=== PATIENT | female | born 1985 | race Caucasian/White ===

== ENCOUNTER 2016-06-05 07:06 | Emergency (ER) | payer BC ==
--- NOTE | 2016-06-06 00:50 | ED ORDER SUMMARY ---
..... Patient: WANDA BROWN OrderSheet [facility] VisitID: [id number] [place] [address] 30y, F Registration Date/Time: 06/05/2016 ORDER SHEET Weight: 59.8 kg (stated) Allergies: No Known Drug Allergy GENERAL ORDERS: CBC w Diff Urgent (08:20 06/05/2016 Justin GAUTAM) (Ack 8:21 TBergley) (9:00 TBergley) CMP Urgent (08:06/05/2016 Justin GAUTAM) (Ack 8:21 TBergley) (9:00 TBergley) UA-Culture if indicated Urgent (08:06/05/2016 Justin GAUTAM) (Ack 8:21 TBergley) (9:00 TBergley) Urine Urgent (08:20 06/05/2016 Justin GAUTAM) (Ack 8:21 TBergley) (9:00 TBergley) Urine Drug Screen Urgent (08:06/05/2016 Justin GAUTAM) (Ack 8:21 TBergley) (9:00 TBergley) POC Breathalyzer (08:20 06/05/2016 Justin GAUTAM) (Ack 8:21 TBergley) (8:34 TBergley) Call (Place call to): (PAT team) (09:03 06/05/2016 Savannah PEARL) (9:05 TBergley) MEDICATION ORDERS: Ativan PO 1 mg (once now for sleep) (04:43 06/06/2016 Parish Paul) (4:46 Yesika R.NDl) IV FLUIDS: ORDER SHEET NOTES: [Electronically signed by Desean Lowery R.N. (10:09 06/07/2016)] [Electronically signed by Jose Starr DO (07:38 06/08/2016)] [Electronically locked/signed by Desean Lowery R.N. (10:06/07/2016)]
--- NOTE | 2016-06-06 00:50 | ED ORDER SUMMARY ---
..... Patient: WANDA BROWN OrderSheet [facility] VisitID: [id number] [place] [address] 30y, F Registration Date/Time: 06/05/2016 ORDER SHEET Weight: 59.8 kg (stated) Allergies: No Known Drug Allergy GENERAL ORDERS: CBC w Diff Urgent (08:20 06/05/2016 Justin GAUTAM) (Ack 8:21 TBergley) (9:00 TBergley) CMP Urgent (08:06/05/2016 Justin GAUTAM) (Ack 8:21 TBergley) (9:00 TBergley) UA-Culture if indicated Urgent (08:06/05/2016 Justin GAUTAM) (Ack 8:21 TBergley) (9:00 TBergley) Urine Urgent (08:20 06/05/2016 Justin GAUTAM) (Ack 8:21 TBergley) (9:00 TBergley) Urine Drug Screen Urgent (08:06/05/2016 Justin GAUTAM) (Ack 8:21 TBergley) (9:00 TBergley) POC Breathalyzer (08:20 06/05/2016 Justin GAUTAM) (Ack 8:21 TBergley) (8:34 TBergley) Call (Place call to): (PAT team) (09:03 06/05/2016 Savannah PEARL) (9:05 TBergley) MEDICATION ORDERS: Ativan PO 1 mg (once now for sleep) (04:43 06/06/2016 Parish Paul) (4:46 Yesika R.NDl) IV FLUIDS: ORDER SHEET NOTES: [Electronically signed by Desean Lowery R.N. (10:09 06/07/2016)] [Electronically signed by Jose Starr DO (07:38 06/08/2016)] [Electronically locked/signed by Desean Lowery R.N. (10:06/07/2016)]
--- NOTE | 2016-06-06 00:50 | ED NURSING NOTES ---
Clinical Report - Nurses [facility] [address] [place] [address] 06/05/2016 7:11 [id number] Triage time 07:Jun 05 2016. Acuity: LEVEL 3. Chief Complaint: DEPRESSION, SUICIDAL THOUGHTS, ANXIETY, DELUSIONS and BIZARRE BEHAVIOR. LUNA COMA SCORE: [place] Coma Scale: 15- eyes open spontaneously (4); best verbal response- oriented x 4 (5); best motor response- obeys commands (6). --07:40 Desean Lowery R.N. 07:23 06/05/16. BP: 124/88. HR: 81. RR: 18. O2 saturation: 98%. Temp: 98.4 F. Pain level now 0/10. --07:40 Desean Lowery R.N. Weight: 59.8 kg stated. Height/Length: 66 inches Per Patient. BMI: 21.3. --07:36 Desean Lowery R.N. Medications PROzac Oral. --07:33 Desean Lowery R.N. Ambien Oral. --07:33 Desean Lowery R.N. Allergies No Known Drug Allergy. --01:02 Leoncio Beaver R.N. History Arrived by private vehicle. Historian: patient. Accompanied by family. ( Two weeks ago patient started getting worse with delusions and and having anxiety and thoughts of her having brain damage. Patient was taken off prozac that she was on for 11 years and was weaned to CBD cannabis oil. Patient felt like she started to get shooting pains down her spine and through her body and was unable to sleep. Patient was worried that her brain is damaged from the cannabis. Patient was started on Prozac Tuesday 20 mg and ambien 5 mg on . Patient states she wants to kill herself by electrocution or jumping off her parents balcony. Patient states she wants to because she will never get REM sleep again. Patient agrees to contact RN if feeling unsafe or like hurting herself during her stay.). She has had anxiety and sleeping difficulties, describes feelings of depression and has been confused. PAST MEDICAL HX: Anxiety. Psychiatric illness. No history of diabetes mellitus or hypertension. Immunizations: up-to-date. Last normal menstrual period- May 25. SOCIAL HX: Never smoker. History of drug use: marijuana. No alcohol use. SELF HARM ASSESSMENT: A self harm assessment was performed. The patient answered "yes" to the question "Have you recently felt down, depressed, or hopeless?", "Have you noticed less interest or pleasure in doing things?" and "Do you have thoughts of harming or killing yourself?" and "no" to the question "Are you here because you tried to hurt yourself?", "Have you ever tried to hurt yourself before today?", "Have you recently had thoughts about harming or killing others?" and "Do you have any dangerous items in your possession?". The patient reports their behavior included delusions and as confused and family reported the patient's behavior included delusions and as confused. In the ED the patient has been restless, having delusions and anxious and made suicidal comments. She has been placed under 1-on-1 and continuous supervision with family at bedside. She was placed in direct sight of the nurses station. Clothes and valuables were removed and placed at the nurses station. The ED physician has been notified. FALL RISK ASSESSMENT: Fall risk assessment completed. No fall risk identified. NUTRITIONAL RISK ASSESSMENT: The nutritional risk assessment revealed no deficiencies. FUNCTIONAL ASSESSMENT: Functional assessment: no impairments noted. LEARNING NEEDS ASSESSMENT: The learning needs assessment revealed no barriers. SKIN INTEGRITY ASSESSMENT: Skin integrity risk assessment completed. No skin integrity risk identified. --07:40 Desean Lowery R.N. PROBLEMS: Anxiety disorder. Autism. Asperger's disorder. --07:34 Desean Lowery R.N. ADDITIONAL SURGERIES: no known surgeries. Interventions ID band on patient. --07:40 Desean Lowery R.N. PHYSICAL ASSESSMENT Ambulatory to room. GENERAL / NEURO / PSYCH: Alert. Oriented X 4. Appears anxious and in distress. Speech within normal limits. Patient's mood/affect appears flat. Patient appears calm and cooperative. Behavior appears abnormal, including paranoid behaviors. The patient appears to have altered thought processes, verbalized as delusions of grandeur and obsessive-compulsive ideation. She describes constant suicidal thoughts and has a specific plan (with access to the planned method). Patient appears well-nourished and neat and clean. RESPIRATORY: Respirations not labored. Breath sounds within normal limits. CVS: Normal heart rate and rhythm. Capillary refill less than 2 seconds. GI / : Abdomen soft and nontender. Bowel sounds within normal limits. ( Last BM yesterday normal slightly constipated). SKIN: Skin intact. Skin is warm and dry. Skin color is within normal limits. --07:41 Desean Lowery R.N. ( PAT psych vibration analyst is currently with the patient. Patient appears calm, sitting in bed talking with the vibration analyst. Parents of the patient are at the bedside.). --00:09 Leoncio Beaver R.N. ( Parents of the patient at bedside. PAtient resting in bed, appears calm.). --00:56 Leoncio Beaver R.N. ( Patient appears to be sleeping in bed. The patient's parents have now left the ER, and the patient is alone in the room, in view of the nurse's station.). --01:35 Leoncio Beaver R.N. GENERAL / NEURO / PSYCH: Alert. Oriented X 4. Appears in no acute distress. Speech within normal limits. Good eye contact. Patient appears well-nourished and neat and clean. RESPIRATORY: Respirations not labored. CVS: Capillary refill less than 2 seconds. SKIN: Skin is warm and dry. Skin color is within normal limits. --01:58 Leoncio Beaver R.N. 01:57 06/06/16. BP: 138/88 taken while lying. HR: 92. RR: 18 (regular and unlabored). O2 saturation: 100% on room air. --01:58 Leoncio Beaver R.N. ( Patient appears calm and appears to be sleeping, in ER bed.). --05:37 Leoncio Beaver R.N. ( Patient remains in view of nursing station, under observation. Patient currently appears to be sleeping.). --06:01 Leoncio Beaver R.N. ( Patient appears to be sleeping. in bed.). --06:15 Leoncio Beaver R.N. NURSING PROGRESS NOTES The initial plan of care for this patient includes an assessment with efforts to address patient positioning, appropriate ambient lighting and comfortable environmental temperature. Pulse oximeter and NIBP monitor placed on patient. Patient gowned. Reassurance given. Suicide precautions initiated. Call light placed in reach. Side rails up x 2. Bed placed in lowest position. Brakes of bed on. --07:41 Desean Lowery R.N. ( Q 15 min checks completed. Patient stable. Parents at bedside offered fluids and food. Patient accepted tea. Patient not left alone.). --10:11 Desean Lowery R.N. ( Continued with Q 15 min checks. Patient ate lunch. Mom at bedside to supervise patient. Keeps asking for MRI states doesn't want to be awake forever and of exhaustion. Gave patient puzzle and coloring materials to keep in supervision of parent to distract patient and ease anxiety.). --12:12 Desean Lowery R.N. ( Continued with Q 15 min checks and father joined bedside. Patient attempting to rest.). --14:06 Desean Lowery R.N. ( Contiuned with Q15 min checks. Mother at bedside. Patient taking a nap currently since 1530.). --16:27 Desean Lowery R.N. 17:42 06/05/16. BP: 126/85. HR: 84. RR: 16. O2 saturation: 97%. Temp: 98.0 F. --17:43 Jacqueline Teresa ( Report received from SARA Anton. Patient states that she will notify staff "if I feel unsafe". Parents of patient at bedside. Patient in view of nurses station, she is sitting in bed calmly coloring pictures.). --19:21 Leoncio Beaver R.N. 19:32 06/05/16. BP: 123/89. HR: 73. RR: 16 (regular and unlabored). O2 saturation: 98% on room air. Pain level now: 0/10. --19:32 Leoncio Beaver R.N. ( I've been rounding on patient every 15 minutes. Patient currently sitting in bed, conversing with her parents, who are both at the bedside, and watching television.). --19:43 Leoncio Beaver R.N. 20:14 Breathalyzer 0.00. --20:14 Melanie Troy ER Tech1 ( Patient ambulates to restroom with her mother, mother enters restroom with patient). --20:25 Leoncio Beaver R.N. ( Patient returns to room (ER #3) with her mother.). --20:26 Leoncio Beaver R.N. ( Patient in view of nursing station. Performing 15 minute checks on patient, patient with parents, reclining in bed watching television, appears calm and awake.). --20:34 Leoncio Beaver R.N. Patient gowned. Head of bed elevated. Suicide precautions initiated: a safety sweep of the room is ongoing. Frequent one on one supervision, family at bedside, checks performed every 15 minutes. Patient placed in direct sight of the nurse's station. Call light placed in reach. ( I've been performing 15 minute checks on patient. patient has been resting in bed, parents of patient at bedside, drinks offered and provided to patient and family.). --21:50 Leoncio Beaver R.N. 21:50 06/05/16. BP: 127/88. HR: 69. RR: 16 (regular and unlabored). O2 saturation: 98% on room air. Pain level now: 0/10. --21:51 Leoncio Beaver R.N. 23:34 06/05/16. BP: 128/81. HR: 76. RR: 16. O2 saturation: 100% on room air. Additional comments: Parents at bedside, no voiced questions or concerns at this time. Patient and family given ETA of PAT sales performance manager . --23:34 Melanie Troy ER Tech1 ( I asked Dr. Christiano Young, at the patient's mother's request, if the patient could be given a dose of ambien (5 mg)--from her home medication supply (which is in the possession of the patient's mother). The doctor said that the patient may take her regular dose of ambien, from the medication supply that her mother has brought with her. I witnessed the mother give the patient one tablet--5 mg--of ambien from her home medication supply.). --00:17 Leoncio Beaver R.N. ( patient moved to the room with the highest available visibility from the nurses' station--ER room 13. (Psych room 16 is already occupied).). --01:57 Leoncio Beaver R.N. Patient gowned. Head of bed elevated 15 degrees. Suicide precautions initiated: a safety sweep of the room is ongoing. Frequent one on one supervision, checks performed every 15 minutes. Patient placed in direct sight of the nurse's station. Call light placed in reach. Side rails up x 1. Bed placed in lowest position. Brakes of bed on. --01:59 Leoncio Beaver R.N. ( Continued q15 checks. Patient on constant observation since moving to room ER-13. Patient currently appears to be sleeping, in bed. appears calm.). --04:09 Leoncio Beaver R.N. 04:35 06/06/16. BP: 125/90 taken on the left arm, while sitting. HR: 84. RR: 18 (regular and unlabored). O2 saturation: 100% on room air. Mejias-Adames pain scale: 0/10. --04:38 Leoncio Beaver R.N. Two patient identifiers checked. Call light placed in reach. Side rails up x 1. Bed placed in lowest position. Brakes of bed on. ( Patient calm and resting in bed. I awoke her to recheck vital signs and see if she had any needs. Water offered and provided to patient.). --04:38 Leoncio Beaver R.N. 04:46 06/06/2016 Ativan (LORazepam) PO Tablets 1 mg given. Allergies verified, confirmed 5 rights and sedative warning given to the patient. --04:46 Leoncio Beaver R.N. 04:44. ( Patient states "I'm pretty sure I had a stroke back there. on my back. and I am pretty sure I need an x-ray." I notified the doctor of the patient's concerns.). --04:50 Leoncio Beaver R.N. ( Patient is restless, Has gotten out of bed, and is pacing her room.). --04:52 Leoncio Beaver R.N. ( Patient states that "I had a stroke in my back, and now I can't dream". I escorted the patient to the restroom, and then back to her room. I offered the patient television and she declined. Patient is currently pacing in her room.). --05:00 Leoncio Beaver R.N. ( Wanda is awake, pacing room. Seems anxious. States "I can't go in to REM sleep because I have had a stroke in my back." Provided Wanda with new warm blankets and asked if she would like to engage in a mindfulness activity. Wanda is currently lying down comfortably; she verbalizes she likes Frozen and the character Darren. At this time, she is focusing her thoughts on the movie Frozen and Darren paying attention to when her mind wanders to negative thoughts about sleep and the stroke in her back. She is able to actively engage in activity.). --05:12 Tor Garcia R.N. ( Report given to Desean Cordova RN. Patient resting in bed, appears calm.). --06:57 Leoncio Beaver R.N. ( Patient resting soundly will vital patient with arrival of breakfast.). --07:30 Desean Lowery R.N. ( Patient states feels like she has slept well. Still feels a little sleepy. Vitals completed and breakfast given. Q 15 min checks completed.). --08:32 Desean Lowery R.N. 08:31 06/06/16. BP: 138/93. HR: 117. RR: 18. O2 saturation: 96%. Temp: 98.4 F. Pain level now 0/10. --08:32 Desean Lowery R.N. ( Patient resting soundly after am hygiene care. Parents at bedside. Q 15 min checks continued.). --09:50 Desean Lowery R.N. DISPOSITION / DISCHARGE Departure time: 10:59 Jun 06 2016. Transferred to [facility]. ( Report given to Ambulance and call made to [place] for report.). --10:59 Desean Lowery R.N. 10:58 06/06/16. BP: 132/88. HR: 110. RR: 18. O2 saturation: 98%. Temp: 98.2 F. Pain level now 0/10. --10:59 Desean Lowery R.N. 08:31 06/06/16. BP: 138/93. HR: 117. RR: 18. O2 saturation: 96%. Temp: 98.4 F. Pain level now 0/10. --10:59 Desean Lowery R.N. Locked/Released at 06/07/2016 10:09 by Desean Lowery R.N.
--- NOTE | 2016-06-06 00:50 | ED CLINICAL REPORT ---
Clinical Report - Physicians/Mid Levels [facility] [address] [place] [address] 06/05/2016 7:11 [id number] Time Seen: 07:30. Arrived- By private vehicle. Historian- patient and family. HISTORY OF PRESENT ILLNESS Chief Complaint: SUICIDAL THOUGHTS and ATTEMPT. This started several weeks ago. (Most recently the patient believes that, "the spine has stopped sending signals to my brain so I cannot get REM sleep. She would like a "total body scan. She describes herself as axious. She has significant suicidal thoughts. She has thought about jumping off the balcony and landing on her head. She has thought about putting a spoon in electrical socket. In fact she did that but the spoon had a wooden handle so there was no ill effect. she was treated with Prozac for 11 years by a practitioner in [place]. She her family and the practitioner wanted to wean her off Prozac because she was having suicidal ideation and being aggressive which they blamed on the Prozac. Over a period of 18 months she weaned off the Prozac and stopped altogether on March 08. She felt well at that time. At the end of March she decided to try cannabis oil to treat symptoms of anxiety.This seemed to make her worse. She has not taken any cannabis in the last month.). (Ambien - 5 mg 4-5 hours of sleep). Has not been eating or sleeping. She has had anxiety and delusions. Has been depressed and had suicidal thoughts. She inflicted self-injury. The symptoms are described as severe. No injury is present. Similar symptoms previously: Recent medical care: The patient was seen recently by a health care provider. REVIEW OF SYSTEMS Last normal menstrual period- May 23. No headache, dizziness, weakness, chest pain or abdominal pain. No vomiting, diarrhea, black stools, fever or sore throat. No cough, difficulty breathing, urinary frequency, skin rash or enlarged lymph nodes. No joint pain. The patient has had depression and a sleep disorder. All systems otherwise negative, except as recorded above. PAST HISTORY ( PCP: [facility] - no local Ops: None Hosp: Eating disorder - anorexia and bulimia, Anxiety, Illness: Autism spectrum, OCD,). SOCIAL HISTORY Never smoker. History of drug use: marijuana. No alcohol use. Has good social support. Lives with family. ADDITIONAL NOTES The nursing notes have been reviewed. PHYSICAL EXAM Vital Signs: 06/05/2016 07:23 BP: 124/88. HR: 81. RR: 18. O2 saturation: 98%. Temp: 98.4 F. Appearance: Alert. No acute distress. Appearance is normal. Eyes: Pupils equal, round and reactive to light. Neck: Normal inspection. Neck supple. CVS: Normal heart rate and rhythm. Heart sounds normal. Respiratory: Breath sounds normal. Chest nontender. Abdomen: Soft and nontender. Back: No tenderness. Skin: Skin warm. Normal skin color. Extremities: Extremities exhibit normal ROM. No lower extremity edema. Psych / Neuro: Oriented X 3. Speech normal and is abnormal. Cognition normal. She is not disoriented. She expresses suicidal thoughts. Insight and judgement normal. Cranial nerves normal (as tested). No motor deficit. LABS, X-RAYS, AND EKG Laboratory Tests: UA-Culture if indicated: (SANDRA: 06/05/2016 08:40) ( MsgRcvd 06/05/2016 08:58) Final results Test Result Flag Units (Reference) URINE COLOR YELLOW URINE APPEARANCE SL CLOUDY URINE GLUCOSE NEGATIVE (NEGATIVE) URINE BILIRUBIN NEGATIVE (NEGATIVE) URINE KETONE NEGATIVE (NEGATIVE) URINE SPECIFIC GRAVITY 1.015 (1.010-1.030) URINE PH 8.5 H (5.0-8.0) URINE PROTEIN NEGATIVE (NEGATIVE) URINE UROBILINOGEN 0.2 EU/dL (0.2-1.0) URINE NITRITE NEGATIVE (NEGATIVE) URINE BLOOD NEGATIVE (NEGATIVE) URINE LEUK ESTERASE NEGATIVE (NEGATIVE) URINE RBC NONE SEEN rbc/hpf (0-1) URINE WBC NONE SEEN wbc/hpf (0-1) URINE EPITHELIAL CELLS 0-1 EPI/hpf (0-5) URINE BACTERIA TRACE (<1+) (NONE SEEN) URINE COMMENT CULT NOT INDICATED 3+ AMORPHOUSURINE CULTURES ARE SET-UP BASED ON THE FOLLOWING CRITERIA:POSITIVE NITRITEPOSITIVE LEUKOCYTE ESTERASEGREATER THAN 10 WHITE BLOOD CELLSMODERATE (2+) OR GREATER BACTERIA Urine: (SANDRA: 06/05/2016 08:40) ( [facility] 06/05/2016 08:52) Final results Test Result Flag Units (Reference) URINE NEGATIVE CBC w Diff: (SANDRA: 06/05/2016 08:40) ( [facility] 06/05/2016 08:54) Final results Test Result Flag Units (Reference) WHITE BLOOD COUNT 9.2 K/uL (4.5-11.5) RED BLOOD COUNT 4.33 M/uL (4.00-5.20) HEMOGLOBIN 13.4 gm/dL (12.0-16.0) HEMATOCRIT 40.4 % (36.0-46.0) MEAN CELL VOLUME 93 fL (80-100) MEAN CORPUSCULAR HGB 31 pg (26-34) MEAN CORPUSCULAR HGB CONC 33 g/dL (31-37) RED CELL DISTRIBUTION WIDTH 12.9 % (11.6-14.8) PLATELET COUNT 253 K/uL (150-400) NEUTROPHIL % 78.1 H % (50-75) LYMPH % 13.0 L % (25-40) MONO % 8.0 % (3-14) EOSINOPHIL % 0.9 % (0-4) BASOPHIL % 0 % (0-2) Urine Drug Screen: (SANDRA: 06/05/2016 08:40) ( [facility] 06/05/2016 09:00) Final results Test Result Flag Units (Reference) AMPHETAMINE/METHAMPHETAMINE NEGATIVE (NEGATIVE) BARBITURATE NEGATIVE (NEGATIVE) BENZODIAZEPINE NEGATIVE (NEGATIVE) CANNABINOID NEGATIVE (NEGATIVE) COCAINE NEGATIVE (NEGATIVE) ECSTASY NEGATIVE (NEGATIVE) METHADONE NEGATIVE (NEGATIVE) OPIATE NEGATIVE (NEGATIVE) The urine drug screen is a qualitative screening test fordrug overdose and abuse. All screen results should beconsidered as presumptive.Drugs screened for are as follows:BenzodiazepinesCocaineAmphetamines/MetamphetaminesTHC (Tetrahydrocannabinol)OpiatesBarbituratesEcstasyMethadonePositive results are unconfirmed. For confirmation, notifythe lab for the specimen to be sent to the reference lab.All confirmations must be performed by a differentmethodology.The ingestion of natural herbal and plant productscontaining Ephedra/Ephedra metabolites can produce in urineone or more substances capable of cross reacting withamphetamine/methamphetamine immunoassays. These testsprovide a preliminary result only. A more specificalternative chemical method must be used to obtain aconfirmed analytical result. CMP: (SANDRA: 06/05/2016 08:40) ( MsgRcvd 06/05/2016 09:02) Final results Test Result Flag Units (Reference) GLUCOSE 100 mg/dL (70-110) BUN 12 mg/dL (7-18) CREATININE 0.7 mg/dL (0.6-1.3) Estimated GFR >60 mL/min Estimated GFR- >60 mL/min Note: Persistent reduction over 3 months in eGFR<60 mL/min/1.73 m2 defines CKD. Patients with eGFR values>=60 mL/min/1.73 m2 may also have CKD if evidence ofpersistent proteinuria. Additional information may be foundat www.kidney.org. SODIUM 143 mmol/L (136-145) POTASSIUM 4.1 mmol/L (3.5-5.1) CHLORIDE 105 mmol/L (98-107) CARBON DIOXIDE 29 mmol/L (21-32) CALCIUM 9.1 mg/dL (8.5-10.1) TOTAL PROTEIN 7.5 g/dL (6.4-8.2) ALBUMIN 4.1 g/dL (3.3-5.0) BILIRUBIN, TOTAL 0.3 mg/dL (0.0-1.0) ALKALINE PHOSPHATASE 45 L U/L (46-116) AST (SGOT) 26 U/L (15-37) ALT (SGPT) 43 U/L (12-78) . (Breathalyzer 0). Pulse Oximetry: 06/05/2016 07:23 O2 saturation: 98%. (FIO2 - room air). Interpretation: normal. PROGRESS AND PROCEDURES Course of Care: 08:53 06/05/16. Will need [place] residential support worker. 08:56 06/05/16. Care transferred to Dr Starr due to change of shift. /Emily Pardo MD 09:47 06/05/16. [facility] called and cannot send out worker for about 13 hours. [facility] called and no beds now. Calling [place] intake to see if we can directly transfer 10:36 06/05/16. No psychiatric beds at [facility] or . I have informed patient and family of the long wait - until at least 23:00 tonight. Wanda is still "voluntary" but still expressing suicidal ideation. Pt evaluated by mental health and has bed at [facility]. She remains hemodynamically stable in the ED. Patient/family counseled. Disposition: Transferred to [facility]. Condition: stable. CLINICAL IMPRESSION Suicidal ideation (Electronically signed by Jose Starr DO 06/08/2016 7:38)
--- NOTE | 2016-06-06 00:50 | ED CLINICAL REPORT ---
Clinical Report - Physicians/Mid Levels [facility] [address] [place] [address] 06/05/2016 7:11 [id number] Time Seen: 07:30. Arrived- By private vehicle. Historian- patient and family. HISTORY OF PRESENT ILLNESS Chief Complaint: SUICIDAL THOUGHTS and ATTEMPT. This started several weeks ago. (Most recently the patient believes that, "the spine has stopped sending signals to my brain so I cannot get REM sleep. She would like a "total body scan. She describes herself as axious. She has significant suicidal thoughts. She has thought about jumping off the balcony and landing on her head. She has thought about putting a spoon in electrical socket. In fact she did that but the spoon had a wooden handle so there was no ill effect. she was treated with Prozac for 11 years by a practitioner in [place]. She her family and the practitioner wanted to wean her off Prozac because she was having suicidal ideation and being aggressive which they blamed on the Prozac. Over a period of 18 months she weaned off the Prozac and stopped altogether on March 08. She felt well at that time. At the end of March she decided to try cannabis oil to treat symptoms of anxiety.This seemed to make her worse. She has not taken any cannabis in the last month.). (Ambien - 5 mg 4-5 hours of sleep). Has not been eating or sleeping. She has had anxiety and delusions. Has been depressed and had suicidal thoughts. She inflicted self-injury. The symptoms are described as severe. No injury is present. Similar symptoms previously: Recent medical care: The patient was seen recently by a health care provider. REVIEW OF SYSTEMS Last normal menstrual period- May 23. No headache, dizziness, weakness, chest pain or abdominal pain. No vomiting, diarrhea, black stools, fever or sore throat. No cough, difficulty breathing, urinary frequency, skin rash or enlarged lymph nodes. No joint pain. The patient has had depression and a sleep disorder. All systems otherwise negative, except as recorded above. PAST HISTORY ( PCP: [facility] - no local Ops: None Hosp: Eating disorder - anorexia and bulimia, Anxiety, Illness: Autism spectrum, OCD,). SOCIAL HISTORY Never smoker. History of drug use: marijuana. No alcohol use. Has good social support. Lives with family. ADDITIONAL NOTES The nursing notes have been reviewed. PHYSICAL EXAM Vital Signs: 06/05/2016 07:23 BP: 124/88. HR: 81. RR: 18. O2 saturation: 98%. Temp: 98.4 F. Appearance: Alert. No acute distress. Appearance is normal. Eyes: Pupils equal, round and reactive to light. Neck: Normal inspection. Neck supple. CVS: Normal heart rate and rhythm. Heart sounds normal. Respiratory: Breath sounds normal. Chest nontender. Abdomen: Soft and nontender. Back: No tenderness. Skin: Skin warm. Normal skin color. Extremities: Extremities exhibit normal ROM. No lower extremity edema. Psych / Neuro: Oriented X 3. Speech normal and is abnormal. Cognition normal. She is not disoriented. She expresses suicidal thoughts. Insight and judgement normal. Cranial nerves normal (as tested). No motor deficit. LABS, X-RAYS, AND EKG Laboratory Tests: UA-Culture if indicated: (SANDRA: 06/05/2016 08:40) ( MsgRcvd 06/05/2016 08:58) Final results Test Result Flag Units (Reference) URINE COLOR YELLOW URINE APPEARANCE SL CLOUDY URINE GLUCOSE NEGATIVE (NEGATIVE) URINE BILIRUBIN NEGATIVE (NEGATIVE) URINE KETONE NEGATIVE (NEGATIVE) URINE SPECIFIC GRAVITY 1.015 (1.010-1.030) URINE PH 8.5 H (5.0-8.0) URINE PROTEIN NEGATIVE (NEGATIVE) URINE UROBILINOGEN 0.2 EU/dL (0.2-1.0) URINE NITRITE NEGATIVE (NEGATIVE) URINE BLOOD NEGATIVE (NEGATIVE) URINE LEUK ESTERASE NEGATIVE (NEGATIVE) URINE RBC NONE SEEN rbc/hpf (0-1) URINE WBC NONE SEEN wbc/hpf (0-1) URINE EPITHELIAL CELLS 0-1 EPI/hpf (0-5) URINE BACTERIA TRACE (<1+) (NONE SEEN) URINE COMMENT CULT NOT INDICATED 3+ AMORPHOUSURINE CULTURES ARE SET-UP BASED ON THE FOLLOWING CRITERIA:POSITIVE NITRITEPOSITIVE LEUKOCYTE ESTERASEGREATER THAN 10 WHITE BLOOD CELLSMODERATE (2+) OR GREATER BACTERIA Urine: (SANDRA: 06/05/2016 08:40) ( [facility] 06/05/2016 08:52) Final results Test Result Flag Units (Reference) URINE NEGATIVE CBC w Diff: (SANDRA: 06/05/2016 08:40) ( [facility] 06/05/2016 08:54) Final results Test Result Flag Units (Reference) WHITE BLOOD COUNT 9.2 K/uL (4.5-11.5) RED BLOOD COUNT 4.33 M/uL (4.00-5.20) HEMOGLOBIN 13.4 gm/dL (12.0-16.0) HEMATOCRIT 40.4 % (36.0-46.0) MEAN CELL VOLUME 93 fL (80-100) MEAN CORPUSCULAR HGB 31 pg (26-34) MEAN CORPUSCULAR HGB CONC 33 g/dL (31-37) RED CELL DISTRIBUTION WIDTH 12.9 % (11.6-14.8) PLATELET COUNT 253 K/uL (150-400) NEUTROPHIL % 78.1 H % (50-75) LYMPH % 13.0 L % (25-40) MONO % 8.0 % (3-14) EOSINOPHIL % 0.9 % (0-4) BASOPHIL % 0 % (0-2) Urine Drug Screen: (SANDRA: 06/05/2016 08:40) ( [facility] 06/05/2016 09:00) Final results Test Result Flag Units (Reference) AMPHETAMINE/METHAMPHETAMINE NEGATIVE (NEGATIVE) BARBITURATE NEGATIVE (NEGATIVE) BENZODIAZEPINE NEGATIVE (NEGATIVE) CANNABINOID NEGATIVE (NEGATIVE) COCAINE NEGATIVE (NEGATIVE) ECSTASY NEGATIVE (NEGATIVE) METHADONE NEGATIVE (NEGATIVE) OPIATE NEGATIVE (NEGATIVE) The urine drug screen is a qualitative screening test fordrug overdose and abuse. All screen results should beconsidered as presumptive.Drugs screened for are as follows:BenzodiazepinesCocaineAmphetamines/MetamphetaminesTHC (Tetrahydrocannabinol)OpiatesBarbituratesEcstasyMethadonePositive results are unconfirmed. For confirmation, notifythe lab for the specimen to be sent to the reference lab.All confirmations must be performed by a differentmethodology.The ingestion of natural herbal and plant productscontaining Ephedra/Ephedra metabolites can produce in urineone or more substances capable of cross reacting withamphetamine/methamphetamine immunoassays. These testsprovide a preliminary result only. A more specificalternative chemical method must be used to obtain aconfirmed analytical result. CMP: (SANDRA: 06/05/2016 08:40) ( MsgRcvd 06/05/2016 09:02) Final results Test Result Flag Units (Reference) GLUCOSE 100 mg/dL (70-110) BUN 12 mg/dL (7-18) CREATININE 0.7 mg/dL (0.6-1.3) Estimated GFR >60 mL/min Estimated GFR- >60 mL/min Note: Persistent reduction over 3 months in eGFR<60 mL/min/1.73 m2 defines CKD. Patients with eGFR values>=60 mL/min/1.73 m2 may also have CKD if evidence ofpersistent proteinuria. Additional information may be foundat www.kidney.org. SODIUM 143 mmol/L (136-145) POTASSIUM 4.1 mmol/L (3.5-5.1) CHLORIDE 105 mmol/L (98-107) CARBON DIOXIDE 29 mmol/L (21-32) CALCIUM 9.1 mg/dL (8.5-10.1) TOTAL PROTEIN 7.5 g/dL (6.4-8.2) ALBUMIN 4.1 g/dL (3.3-5.0) BILIRUBIN, TOTAL 0.3 mg/dL (0.0-1.0) ALKALINE PHOSPHATASE 45 L U/L (46-116) AST (SGOT) 26 U/L (15-37) ALT (SGPT) 43 U/L (12-78) . (Breathalyzer 0). Pulse Oximetry: 06/05/2016 07:23 O2 saturation: 98%. (FIO2 - room air). Interpretation: normal. PROGRESS AND PROCEDURES Course of Care: 08:53 06/05/16. Will need [place] [facility] worker. 08:56 06/05/16. Care transferred to Dr Starr due to change of shift. /Emily Pardo MD 09:47 06/05/16. [facility] called and cannot send out worker for about 13 hours. [facility] called and no beds now. Calling [place] intake to see if we can directly transfer 10:36 06/05/16. No psychiatric beds at [facility] or . I have informed patient and family of the long wait - until at least 23:00 tonight. Wanda is still "voluntary" but still expressing suicidal ideation. Pt evaluated by mental health and has bed at [place]. She remains hemodynamically stable in the ED. Patient/family counseled. Disposition: Transferred to [facility]. Condition: stable. CLINICAL IMPRESSION Suicidal ideation (Electronically signed by Jose Starr DO 06/08/2016 7:38)
--- NOTE | 2016-06-08 07:39 | ED DISCHARGE INSTRUCTIONS ---
Patient: WANDA BROWN General Instructions [facility] VisitID: [id number] [place] [address] 30y, F Registration Date/Time: 06/05/2016 Suicidal ideation ADDITIONAL INFORMATION Depression Depression is one of the most common mental health problems today. It is not just a state of unhappiness or sadness. It is a true disease. The cause seems to be related to a decrease in chemicals that transmit signals in the brain. Having a family history of depression, alcoholism or suicide increases the risk. Chronic illness, chronic pain, migraine headaches and high emotional stress also increase the risk. Depression can cause many different symptoms, such as: -- Loss of appetite -- Over-eating -- Not being able to sleep -- Sleeping too much -- Tiredness not related to physical exertion -- Restlessness or irritability -- Slowness of movement or speech -- Feeling depressed or withdrawn -- Loss of interest in things you once enjoyed -- Difficulty in concentrating, poor memory, have trouble making decisions -- Thoughts of harming or killing oneself, or thoughts that life is not worth living -- Low self-esteem The best treatment for depression is a combination of medicine and psychotherapy. Antidepressant medicines can reduce suffering and can improve the ability to function during the depressed period. Therapy can offer emotional support and help you understand emotional factors that may be causing the depression. Home Care: 1) Be kind to yourself. Make it a point to do things that you enjoy (gardening, walking in nature, going to a movie, etc.). Reward yourself for small successes. 2) Take care of your physical body. Eat a balanced diet (low in saturated fat and high in fruits and vegetables). Establish an exercise plan at least 3 times a week for 30 minutes. Even mild-moderate exercise (like brisk walking) can make you feel better. 3) Avoid alcohol, which can make depression worse. Follow-Up with your doctor as advised. It is important to keep in contact with a health care provider until your symptoms begin to improve. Get Prompt Medical Attention if any of the following occur: -- Feeling extreme depression, fear, anxiety, or anger toward yourself or others -- Feeling out of control -- Feeling that you may try to harm yourself or another -- Hearing voices that others do not hear -- Seeing things that others do not see -- Cant sleep or eat for 3 days in a row You have been given the following additional information: Depression (Electronically signed by Jose Starr DO 06/08/2016 7:38)
--- NOTE | 2016-06-08 07:39 | ED MED RECONCILIATION SUMMARY ---
Patient: WANDA BROWN Medication Reconciliation Report [facility] VisitID: [id number] [address] [place] [address] 30y, F Registration Date/Time: 06/05/2016 Weight: 59.8 kg Height/Length: 66 in. BMI: 21.3 ALLERGIES: No Known Drug Allergy The patient's Home Medications are listed below: THE FOLLOWING MEDICATIONS NEED TO BE RECONCILED: Ambien Oral PROzac Oral The source(s) of the original Home Medication information: Not obtained. The following Medications were given to the patient in the Emergency Department: Ativan [PO] PO 1 mg, administered: 06/06/2016 4:46:00 AM The following Medications were prescribed to the patient: None.
--- NOTE | 2016-06-08 07:39 | ED MAR SUMMARY ---
..... Medication Administration Record [facility] [address] [place] [address] Patient: WANDA BROWN Visit ID: [id number] 30y, F Weight: 59.8 kg Height/Length: 66 in BMI: 21.3 ALLERGIES: No Known Drug Allergy Given 04:46 06/06/2016 Leoncio Beaver R.N. Medication Administered: ATIVAN [PO] (LORAZEPAM), Dose: 1 mg Tablets PO. Medication Ordered: Ativan PO 1 mg (once now for sleep).
--- NOTE | 2016-06-08 07:39 | ED MED RECONCILIATION SUMMARY ---
Patient: WANDA BROWN Medication Reconciliation Report [facility] VisitID: [id number] [address] [place] [address] 30y, F Registration Date/Time: 06/05/2016 Weight: 59.8 kg Height/Length: 66 in. BMI: 21.3 ALLERGIES: No Known Drug Allergy The patient's Home Medications are listed below: THE FOLLOWING MEDICATIONS NEED TO BE RECONCILED: Ambien Oral PROzac Oral The source(s) of the original Home Medication information: Not obtained. The following Medications were given to the patient in the Emergency Department: Ativan [PO] PO 1 mg, administered: 06/06/2016 4:46:00 AM The following Medications were prescribed to the patient: None.
--- NOTE | 2016-06-08 07:39 | ED MAR SUMMARY ---
..... Medication Administration Record [facility] [address] [place] [address] Patient: WANDA BROWN Visit ID: [id number] 30y, F Weight: 59.8 kg Height/Length: 66 in BMI: 21.3 ALLERGIES: No Known Drug Allergy Given 04:46 06/06/2016 Leoncio Beaver R.N. Medication Administered: ATIVAN [PO] (LORAZEPAM), Dose: 1 mg Tablets PO. Medication Ordered: Ativan PO 1 mg (once now for sleep).
== END 2016-06-05 10:59 ==
LOC: ED SRH 07:06
DX: R45.851 Suicidal ideations (principal); Z79.899 Other long term (current) drug therapy
CPT/HCPCS: 90004; 90074; 90100; 92760; 92761; 92762; 92763; 92764; 92765; 92766; 92767; 93070; 95059